=== PATIENT | male | born 1995 | race African-American/Black ===

== ENCOUNTER 2019-01-12 01:26 | Observation (INO) | payer OTHER ==
--- NOTE | 2019-01-12 01:34 | ED ---
General Adult HPI - General Chief complaint: Overdose Stated complaint: Neuro Time Seen by Provider: 01/12/19 01:34 Source: EMS Mode of arrival: EMS - History of Present Illness Initial comments: Patient is a 23yo male who answered to our emergency Department from [facility] for evaluation of altered mental status after an apparent drug intoxication. Upon arrival patient is sedated and provides minimal history. Per report that prior emergency department, the patient had encountered law enforcement earlier in the day, at that time he is awake alert and oriented, he was not arrested. Later in the evening he was found apparently dancing wearing only a pair of shorts despite the 20 weather. Law enforcement was called, patient was noted to be erratic and agitated. EMS was contacted to bring the patient to hospital for medical evaluation. In route the patient became drowsy, he was noted to have shallow respirations and pinpoint pupils. Patient was treated with 3 mg of Narcan and his mental status and respiratory status improved. Upon arrival at the emergency department the patient was agitated and was treated with Ativan. He underwent lab and imaging studies including a head CT. Workup was essentially negative aside from drug screen which was positive for cocaine, amphetamines, methamphetamines. Drug screen was not positive for opiates however the patient had admitted to possible sentinel ingestion and patient had responded to Narcan earlier in the day. At the outside hospital patient was noted to have some twitching motions of his face and some tongue thrusting movements. Patient does have a history of psychiatric illness and has been on psychiatric medications in the past. There is concerned he may be having focal seizures versus tardive dyskinesia versus burxism due to amphetamine use. Decision was made to transport the patient to our department for admission and neurologic evaluation - Related Data Allergies Allergy/AdvReac Type Severity Reaction Status Date / Time cat dander Allergy Unknown Verified 01/12/19 03:20 Review of Systems ROS Statement: Those systems with pertinent positive or pertinent negative responses have been documented in the HPI. ROS Other: All systems not noted in ROS Statement are negative. Past Medical History Past Medical History: Unable to Obtain History of Any Multi-Drug Resistant Organisms: Unobtainable Past Surgical History: Unable to Obtain Past Psychological History: Unable to Obtain Smoking Status: Unknown if ever smoked Past Alcohol Use History: Unable to Obtain Past Drug Use History: Unable to Obtain General Exam - General Exam Comments Initial Comments: Physical Exam GENERAL: Patient is sleeping but wakes to loud voice or touch, upon waking the patient has slurred speech, is uncertain of events earlier in the day HENT: Normocephalic, Atraumatic. EYES: PERRL, EOMI He was 3 mm and reactive PULMONARY: Unlabored respirations. No audible rales rhonchi or wheezing was noted. CARDIOVASCULAR: There is a regular rate and rhythm without any murmurs gallops or rubs. ABDOMEN: Soft and nontender with normal bowel sounds. SKIN: Skin is clear with no lesions or rashes and otherwise unremarkable. : Deferred NEUROLOGIC: The patient is oriented to self, uncertain of the location or events of the day Is able to provide distant history including medications, ALLERGIES MUSCULOSKELETAL: Normal extremities with adequate strength and full range of motion. No lower extremity swelling or edema. No calf tenderness. PSYCHIATRIC: Erratic Course Vital Signs 01/12/19 01/12/19 01:28 03:20 Temperature 98.1 F Pulse Rate 83 80 Respiratory 16 14 Rate Blood Pressure 125/82 114/85 O2 Sat by Pulse 98 97 Oximetry Medical Decision Making - Medical Decision Making Pt was seen and evaluated history was obtained from medical record, patient is somnolent but arousable. She has polysubstance ingestion. There is concern he had facial twitching or tardive dyskinesia. I don't witness any of this however we will plan to place the patient in observation until his mental status improves and he can be evaluated by medicine and possibly neurology or psychology. Disposition Clinical Impression: Intoxication, Encephalopathy acute Disposition: ADMITTED IP TO THIS HOSP Condition: Stable Is patient prescribed a controlled substance at d/c from ED?: No
[2019-01-12] MEDS ORDERED: NALOXONE 0.4 MG/ML 1 ML VIAL IV PRN (04:12)
[2019-01-12 06:55] LABS: Anisocytosis Slight; Basophils % (A) 0 %; Eosinophils # (A) 0.1 k/uL (0-0.7); Eosinophils % (A) 2 %; HCT 38.8 % (39.0-53.0); HGB 12.2 gm/dL (13.0-17.5); Lymphocytes # (A) 1.8 k/uL (1.0-4.8); Lymphocytes % (A) 28 %; MCHC 31.4 g/dL (31.0-37.0); MCV 82.9 fL (80.0-100.0); Mean Platelet Volume 7.3; Monocytes # (A) 0.4 k/uL (0-1.0); Monocytes % (A) 6 %; Neutrophils # (A) 3.9 k/uL (1.3-7.7); Neutrophils % (A) 62 %; Platelet Count 237 k/uL (150-450); RBC 4.68 m/uL (4.30-5.90); RDW 17.4 % (11.5-15.5); WBC 6.4 k/uL (3.8-10.6)
--- NOTE | 2019-01-12 07:01 | P.HPIM ---
History of Present Illness H&P Date: 01/12/19 Chief Complaint: Altered mental status 23-year-old male no significant past medical history Patient still seemed to be intoxicated unable to provide any meaningful history he mentioned that he is homeless and that he is very hungry. He has no recollection of what happened or why he is in the hospital. Patient is unreliable historian I performed chart review of ER records and discussed the case with ER physician Patient was transferred from [facility] due to altered mental status for urologic evaluation. Per report patient had an encounter with law enforcement however he was alert and awake and was not arrested initially but then later during the day he had another encounter where he was found dancing wearing only a short in the cold weather so long for spent was notified again due to the cirrhotic behavior he was found at that time to be agitated EMS notified and was taken to the hospital. In route it seems like patient became more drowsy, noted to have pinpoint pupils and shallow respiration he was given Narcan and had slight improvement in his mental status. By the time he made it to the ER at [facility] he was very agitated was given some Ativan. Blood work was negative except for positive urine drug screen for cocaine, amphetamine, methamphetamine. Computed tomography scan of the head was negative for any acute process for pathology. It is reported that patient admitted to some fentanyl ingestion however his urine drug screen was negative for opiates. During his stay at [facility] in the ER he was found to have some twitching motion of the face and some tongue protrusion motion. It is noted that patient has some mental health history and has been on antipsychotics in the past so there was some concerns for tardive dyskinesia or focal seizure. [facility] did not have neurology service available so patient was transferred to our facility Review of Systems ROS unobtainable: due to mental status Past Medical History Past Medical History: Unable to Obtain History of Any Multi-Drug Resistant Organisms: Unobtainable Past Surgical History: Unable to Obtain Past Psychological History: Unable to Obtain Smoking Status: Unknown if ever smoked Past Alcohol Use History: Unable to Obtain Past Drug Use History: Unable to Obtain - Past Family History Family Family Medical History: Unable to Obtain Medications and Allergies Allergies Allergy/AdvReac Type Severity Reaction Status Date / Time cat dander Allergy Unknown Verified 01/12/19 03:20 Physical Exam Vitals: Vital Signs Temp Pulse Pulse Resp BP BP Pulse Ox 01/12/19 05:29 97.8 F 84 13 90/62 100 01/12/19 03:20 80 14 114/85 97 01/12/19 01:28 98.1 F 83 16 125/82 98 Intake and Output 01/11/19 01/11/19 01/12/19 14:59 22:59 06:59 Other: Weight 65.771 kg Constitutional: No acute distress, Patient's still intoxicated with erratic behavior unable to cooperate properly with exam or interview Eyes: Anicteric sclerae, moist conjunctiva, Pupils equal round reactive to light ENMT: NC/AT Oropharynx clear, no erythema, or exudates Neck: Supple, FROM, no masses, or JVD No carotid bruits No thyromegaly Lungs: Clear to auscultation Clear to percussion Normal respiratory effort, no accessory muscle use Cardiovascular: Heart regular in rate and rhythm, No murmurs, gallops, or rubs No peripheral edema Abdominal: Soft Nontender, no guarding, rebound or rigidity Abdomen moving with respiration Normoactive bowel sounds No hepatomegaly, No splenomegaly No palpable mass No abdominal wall hernia noted Skin: Multiple skin lesions on the face small superficial less than 1 cm each multiple on bilateral cheeks, without any discharge erythema or induration Normal temperature, tone, texture, turgor No induration No subcutaneous nodules No rash, lesions No ulcers Extremities: No digital cyanosis No clubbing Pedal pulses intact and symmetrical Radial pulses intact and symmetrical No calf tenderness Psychiatric: Alert but confused Inappropriate behavior patient continues to be intoxicated Poor judgment Neuro patient didn't really cooperate with neuro exam , he is moving all 4 extremities Lymphatics: no palpable cervical or supraclavicular , or inguinal lymph nodes Assessment and Plan Assessment: 23-year-old male with history of unknown mental health problems patient possibly homeless Was transferred from [facility] for neurologic evaluation due to possible twitching on the face and tongue protrusion concerning for seizure versus tardive dyskinesis Patient was found with erratic behavior in the cold weather today with possible drug intoxication Admitted under observation with anticipated length of stay less than two midnight Plan: Drug intoxication Polysubstance abuse Erratic behavior Facial twitching Close monitoring of vital signs Fall precautions IV fluid hydration Neurologic evaluation Neurochecks Follow-up labs DVT prophylaxis heparin subcu 3 times a day Patient was unable to provide any meaningful history at this time continues to be intoxicated with erratic behavior Full code by default Discussed with: Patient, ER, RN Anticipated length of stay < than [address]: Pending clinical course A total of 60 minutes was spent on the care of this complex patient more than 50% of the time was spent in counseling and care coordination.
[2019-01-12 07:04] LABS: ALT 65 U/L (21-72); AST 33 U/L (17-59); African American GFR (CKD) >90 (>60 ml/min/1.73 sqM); Albumin 3.9 g/dL (3.5-5.0); Alkaline Phosphatase 62 U/L (38-126); Anion Gap 6 mmol/L; Blood Urea Nitrogen 20 mg/dL (9-20); Calcium 9.1 mg/dL (8.4-10.2); Carbon Dioxide 25 mmol/L (22-30); Chloride 109 mmol/L (98-107); Glucose 104 mg/dL (74-99); Non-African American GFR(CKD) >90 (>60 ml/min/1.73 sqM); Potassium 3.9 mmol/L (3.5-5.1); Sodium 140 mmol/L (137-145)
[2019-01-12] MEDS: SODIUM CHLORIDE 0.9% 1,000 ML IV SCH ×2 (09:13→18:18)
--- NOTE | 2019-01-12 14:35 | P.PN ---
Progress Note - Text Progress Note Date: 01/12/19 23-year-old male with psychiatric history is brought to the ED for erratic behavior and agitation. UDS was positive for cocaine, amphetamine and methamphetamine. CT of the head was negative for acute process. Patient admitted to fentanyl ingestion though UDS was negative for opiates. He was noted to have twitching motion of his face and trunk protrusion, transferred to [facility] for neurology evaluation. Patient was seen around 2:30 PM. Patient is disinterested in answering questions. Patient is giving one-word answers followed by going back to sleep. He is on psychiatric medication, unsure if patient has been compliant. We consulted psychiatry but he refused to see the doctor. Psych will attempt to see the patient again tomorrow. Patient will be cleared for discharge after psychiatry assessment and medication reconciliation.
--- NOTE | 2019-01-12 14:43 | P.CN ---
Psychiatric Consult - . Consult date: 01/12/19 Consult:: IDENTIFYING DATA: The patient is a 23-year-old -[place] male transferred from [facility] with altered mental status. HISTORY OF PRESENT ILLNESS: He was not cooperate with the interview. According to the record he presented to the ER at [facility] acutely agitated His urine drug screen was positive for cocaine, amphetamine and methamphetamine. In the emergency room at [facility] he "admitted to some fentanyl ingestion" After I introduced myself he stated that he will not talk to a psychiatrist. He made a comment to the effect that "you're going to keep me here." PAST PSYCHIATRIC HISTORY: He would not provide information about his past psychiatric history. According to record he has a history of a mental illness and treatment with antipsychotic medications. His outpatient medications are listed as Suboxone 8/2 mg, BuSpar, Wellbutrin XL, Restoril, Seroquel and Celexa. PAST MEDICAL HISTORY: He would not answer questions about his past medical history. ALLERGIES: NO KNOWN DRUG ALLERGIES. SUBSTANCE USE HISTORY: He would not answer questions about his substance use history but he is prescribed Suboxone by a community provider apparently for the treatment of chronic opiate use disorder. FAMILY PSYCHIATRIC/SUBSTANCE USE HISTORY: He would not answer questions about his family psychiatric and/or substance use history.. SOCIAL HISTORY: He would not answer questions about his social history. MENTAL STATUS EXAM: He presented as a thin -[place] male who made poor eye contact. He appeared to attend to the interview but would not cooperate. He hadn't facial acne but no prominent physical abnormalities. He had angry facial expression. He showed psychomotor retardation but no abnormal movements. His speech was not spontaneous. His affect was irritable. He would not answer questions about suicidal ideation or wishes. He did not express ideas reference or paranoid ideation during this brief encounter. His thinking appeared abstract. He does not appear to be responding to internal stimuli.. IMPRESSIONS: He is a young -[place] male transferred to our Medical Center from a [facility] ER for altered mental status most likely secondary to multiple drug ingestion. His UDS was positive for cocaine, amphetamine and methamphetamine and reported recent use of fentanyl. He has a reported history of a psychiatric illness and is prescribed several psychotropic medications. He would not cooperate with a psychiatric interview PLAN: I will attempt to interview him again to determine risk of her need for transfer to the psychiatric unit thank you for this consult. 01/12/19 14:35
[2019-01-12] MEDS ORDERED: LORazepam 2 MG/ML INJ IV PRN (18:29)
[2019-01-12 22:10] VITALS: RESP 16
[2019-01-13] MEDS: SODIUM CHLORIDE 0.9% 1,000 ML IV SCH ×2 (06:25→11:19)
[2019-01-13 08:09] VITALS: BP 113/72; PULSE 71; TEMP 97.9
--- NOTE | 2019-01-13 09:57 | P.DS ---
Providers Date of admission: 01/12/19 04:13 Expected date of discharge: 01/13/19 Attending physician: Chela Rothman MD Consults: 01/12/19 11:51 Consult Physician Stat Consulting Provider: Jacky Dsouza Reason/Comments: drug intoxication Do you want consulting provider notified?: Yes Primary care physician: Stated None Hospital Course: 23-year-old male with psychiatric history is brought to the ED for erratic behavior and agitation. UDS was positive for cocaine, amphetamine and methamphetamine. CT of the head was negative for acute process. Patient admitted to fentanyl ingestion though UDS was negative for opiates. He was noted to have twitching motion of his face and tongue protrusion, transferred to [facility] for neurology evaluation. In the ED, vital signs are stable. CBC showed hemoglobin 12.2. CMP showed chloride 109, glucose 104. UDS from previous hospital was positive for methamphetamine and amphetamines. Patient was evaluated by psychiatry yesterday but refused to speak with them. Per RN, patient was reevaluated today and cleared for discharge from a psychiatric standpoint. Patient did not show any facial twitches or tongue protrusion during this admission. There was no seizure activity during his hospitalization. General: [non toxic], [no distress], [appears at stated age] Derm: [warm], [dry] Head: [atraumatic], [normocephalic], [symmetric] Eyes: [EOMI], [no lid lag], [anicteric sclera] Cardiovascular: [S1S2 reg], [no murmur], [positive DP pulse bilateral], Lungs: [CTA bilateral], [no rhonchi, no rales] , [no accessory muscle use] Abdominal: [soft], [ nontender to palpation], [no guarding], [no appreciable organomegaly] Ext: [no gross muscle atrophy], [no edema], [no contractures] Psych: [Alert], [oriented], [appropriate affect] Assessment and plan Acute drug intoxication with history of polysubstance abuse Erratic behavior with psychiatric history UDS positive for methamphetamine and amphetamines. He was given Ativan as needed for agitation overnight. Plans: Discussed rehab options including [place]. Plans: Patient has been cleared by psychiatry. Patient is out of medications. We will refill his medications for the next week. Advised to follow-up with psychiatry within 3-4 days of discharge. Patient advised drug cessation. He verbalizes understanding of the plan. Patient Condition at Discharge: Stable Plan - Discharge Summary Discharge Rx Participant: No New Discharge Prescriptions: Continue Buprenorphine HCl/Naloxone HCl [Suboxone 8 mg-2 mg Sl Film] 1 film SL DAILY busPIRone HCl [Buspar] 10 mg PO TID #21 tab Citalopram Hydrobromide [CeleXA] 40 mg PO DAILY #7 tab QUEtiapine FUMARATE [SEROquel] 200 mg PO HS #7 tab buPROPion XL [Wellbutrin XL] 150 mg PO DAILY #7 tab Discontinued Temazepam [Restoril] 15 mg PO HS Discharge Medication List Buprenorphine HCl/Naloxone HCl [Suboxone 8 mg-2 mg Sl Film] 1 film SL DAILY 01/12/19 [History] Citalopram Hydrobromide [CeleXA] 40 mg PO DAILY #7 tab 01/13/19 [Rx] QUEtiapine FUMARATE [SEROquel] 200 mg PO HS #7 tab 01/13/19 [Rx] buPROPion XL [Wellbutrin XL] 150 mg PO DAILY #7 tab 01/13/19 [Rx] busPIRone HCl [Buspar] 10 mg PO TID #21 tab 01/13/19 [Rx] Follow up Appointment(s)/Referral(s): None,Stated [Primary Care Provider] - 1-2 days Ayaan Kelley DO [Medical Doctor] - 1 Week Activity/Diet/Wound Care/Special Instructions: Diet: Regular Follow-up PCP within 3 days of discharge. Follow-up psychiatry within 1 week of discharge. Take all medications as advised. Please refrain from doing illicit drugs. Come back to the ED or call 911 for suicidal ideation, homicidal ideation, visual or auditory hallucinations. Discharge Disposition: HOME SELF-CARE
--- NOTE | 2019-01-13 16:32 | P.CON ---
Consult Note - . Consult date: 01/13/19 Assessment/Plan:: Clinical Problems: Unintentional overdose of heroin, opiate use disorder severe, cocaine use disorder moderate, methamphetamine use disorder, cannabis use disorder Interim history: I reviewed the medical record and interviewed the patient. He was minimally cooperative with the interview. He alleged that he unintentionally overdosed on heroin prior to admission. He denied that the overdose was related to feelings of depression or suicidal thoughts or wishes. He is not a resident of [facility] or [place]. He was referred to [facility] for residential substance abuse treatment. I had difficulty understanding his explanation but he appears to have left [facility]. He talked about "meeting a woman" and then using heroin resulting in the overdose. He has a history of heroin use. He admitted to injecting, smoking and insufflating to heroin. He has been in several substance abuse treatment programs. The only program that he would name was [place]. He is not been in a methadone treatment program. He alleged that "a physician" had prescribed him Suboxone for the treatment of his opiate dependence. His longest period of abstinence over the last 4 years was "a couple weeks". He admitted to 2 psychiatric admissions; at [facility] and had "[place]" ([facility]). He would not explain or discuss the reason for these hospitalizations. During this interview she denied feeling depressed or having thoughts of or suicide. He denied feeling persistently anxious. In response to questions about psychotic experiences he alleged that he "always hears voices". He would not answer questions that would allow me to better understand this experience and determine whether represented a true auditory hallucinations. He is single and has no children. 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 Mental status exam: He presented as a thin uncooperative aftercare can male who is laying In bed. He did not make eye contact. There are no distinguishing features or prominent physical abnormalities. He had a flat facial expression. He was alert and oriented to person place and time. He showed psychomotor retardation but no abnormal motor and speech. I did not evaluate his gait. His speech was not spontaneous. He spoke so softly that he was barely audible. His affect was flat but appropriate. He denied suicidal ideation or wishes. He denied homicidal ideation. He denied feeling hopeless, helpless or worthless. He did not express ideas reference, paranoid ideation, magical ideation or delusional thoughts. His thinking was concrete but his associations appeared coherent, logical and goal directed. He did not appear to be responding to internal stimuli. Assessment: He is a 23-year-old single -[place] male who has a history of substance abuse disorders. He presented to the Medical Center following an unintentional overdose of heroin. Despite participation in multiple substance abuse treatment programs his longest period of abstinence has been weeks. He would benefit from continued substance abuse treatment. Considering the duration of his opiate use disorder and a failure of both outpatient and residential treatment, he'll be a candidate to refer for a methadone substance abuse treatment program. There is no indication for transfer to the psychiatric unit at this time. Plan: There is no indication for transfer to the psychiatric unit. Refer for substance abuse treatment. Thank you for this consult
== END 2019-01-13 11:55 | disposition home or self-care (01) ==
LOC: EC 01:26 → 4SSUR 04:13
PROVIDERS: ADMIT Internal Medicine; ATTEND Internal Medicine
DX: F19.129 Other psychoactive substance abuse with intoxication, unspecified (principal); G93.40 Encephalopathy, unspecified; J30.81 Allergic rhinitis due to animal (cat) (dog) hair and dander; R25.3 Fasciculation; R41.843 Psychomotor deficit; T40.1X1A Poisoning by heroin, accidental (unintentional), initial encounter; F11.20 Opioid dependence, uncomplicated; F12.10 Cannabis abuse, uncomplicated; F14.20 Cocaine dependence, uncomplicated; F15.10 Other stimulant abuse, uncomplicated
CPT/HCPCS: 96361 ×2; 96374; 99285; 80053; 85025; G0378 ×2; J2060

== ENCOUNTER 2019-01-18 03:30 | Inpatient (IN) | payer OTHER ==
[2019-01-18] MEDS ORDERED: SODIUM CHLORIDE 0.9% 1,000 ML IV STA (03:35)
[2019-01-18] MEDS ORDERED: LORazepam 2 MG/ML INJ IV STA (03:36)
--- NOTE | 2019-01-18 04:03 | ED ---
General Adult HPI - General Source: patient, police, EMS, RN notes reviewed, old records reviewed Mode of arrival: EMS Limitations: no limitations <Michele Tipton - Last Filed: 01/18/19 06:57> <Ruben Quintana - Last Filed: 01/18/19 09:14> - General Stated complaint: EPS,drug use Time Seen by Provider: 01/18/19 03:30 - History of Present Illness Initial comments: 23-year-old male presents with suspected drug overdose. Patient was found by police wandering the streets. He was noted to have erratic impulsive behavior. He was recently admitted to this institution with polysubstance overdose. He does admit to using methamphetamine. Patient's is agitated, he is able to answer simple questions. He admits to using drugs including methamphetamine. Full history is not possible secondary to patient's presentation. (Michele Khan) - Related Data Home Medications Medication Instructions Recorded Confirmed Buprenorphine HCl/Naloxone HCl 1 film SL DAILY 01/12/19 01/18/19 [Suboxone 8 mg-2 mg Sl Film] Previous Rx's Medication Instructions Recorded Citalopram Hydrobromide [CeleXA] 40 mg PO DAILY #7 tab 01/13/19 QUEtiapine FUMARATE [SEROquel] 200 mg PO HS #7 tab 01/13/19 buPROPion XL [Wellbutrin XL] 150 mg PO DAILY #7 tab 01/13/19 busPIRone HCl [Buspar] 10 mg PO TID #21 tab 01/13/19 Allergies Allergy/AdvReac Type Severity Reaction Status Date / Time cat dander Allergy Unknown Verified 01/12/19 10:04 Review of Systems ROS Other: All systems not noted in ROS Statement are negative. <Michele Tipton - Last Filed: 01/18/19 06:57> ROS Other: All systems not noted in ROS Statement are negative. <Ruben Quintana - Last Filed: 01/18/19 09:14> ROS Statement: Those systems with pertinent positive or pertinent negative responses have been documented in the HPI. Past Medical History Past Medical History: Unable to Obtain History of Any Multi-Drug Resistant Organisms: Unobtainable Past Surgical History: Unable to Obtain Past Psychological History: Unable to Obtain Smoking Status: Unknown if ever smoked Past Alcohol Use History: Unable to Obtain Past Drug Use History: Unable to Obtain - Past Family History Family Family Medical History: Unable to Obtain <Michele Tipton - Last Filed: 01/18/19 06:57> General Exam Limitations: no limitations General appearance: appears intoxicated, anxious Head exam: Present: atraumatic, normocephalic Eye exam: Present: other (Pupils are reactive, dilated) ENT exam: Present: mucous membranes dry Respiratory exam: Present: normal lung sounds bilaterally. Absent: respiratory distress, wheezes Cardiovascular Exam: Present: regular rate, normal rhythm GI/Abdominal exam: Present: soft. Absent: distended, tenderness, guarding Extremities exam: Present: other (Distal extremities are cool to the touch, p ulses are intact, no signs of frostbite) Neurological exam: Present: alert, other (Patient is moving all extremities symmetrically). Absent: motor sensory deficit Psychiatric exam: Present: agitated, anxious <Michele Tipton - Last Filed: 01/18/19 06:57> Course <Michele Tipton - Last Filed: 01/18/19 06:57> <Ruben Quintana - Last Filed: 01/18/19 09:14> Vital Signs 01/18/19 01/18/19 01/18/19 03:34 06:28 07:39 Temperature 98.6 F Pulse Rate 84 89 80 Respiratory 24 18 20 Rate Blood Pressure 151/100 103/59 O2 Sat by Pulse 95 98 95 Oximetry - Reevaluation(s) Reevaluation #1: 01/18/19 0700 Patient's care is signed out to Dr. Quintana at shift change awaiting sobriety and reevaluation. 01/18/19 06:57 (Michele Tipton) 01/18/19 08:40 Age and has been evaluated twice now. Patient still appears intoxicated. Patient is oriented. Patient is refusing IV placement and pulled out the IV lines. 01/18/19 09:12 Patient again reevaluated. Patient is alert and still remains intoxicated. Case was discussed in detail with Dr. Benavides, who will admit covering for hos pital call. He is aware that IV is not present. IV cannot be established at this time secondary to patient noncompliance and removing IV lines. Is not felt to be beneficial to place central line or IO line for risk of complications and potentially patient removing them again. Patient will need to be observed further prior to before discharge. (Ruben Quintana) Medical Decision Making - Lab Data Result diagrams: 01/18/19 03:59 01/18/19 03:59 <Michele Tipton - Last Filed: 01/18/19 06:57> - Lab Data Result diagrams: 01/18/19 03:59 01/18/19 03:59 <Ruben Quintana - Last Filed: 01/18/19 09:14> - Lab Data Lab Results 01/18/19 01/18/19 01/18/19 Range/Units 03:59 03:59 05:01 WBC 8.7 (3.8-10.6) k/uL RBC 5.34 (4.30-5.90) m/uL Hgb 13.8 (13.0-17.5) gm/dL Hct 43.6 (39.0-53.0) % MCV 81.6 (80.0-100.0) fL MCH 25.9 (25.0-35.0) pg MCHC 31.7 (31.0-37.0) g/dL RDW 16.9 H (11.5-15.5) % Plt Count 355 (150-450) k/uL Neutrophils % 62 % Lymphocytes % 27 % Monocytes % 6 % Eosinophils % 1 % Basophils % 1 % Neutrophils # 5.4 (1.3-7.7) k/uL Lymphocytes # 2.4 (1.0-4.8) k/uL Monocytes # 0.6 (0-1.0) k/uL Eosinophils # 0.1 (0-0.7) k/uL Basophils # 0.1 (0-0.2) k/uL Anisocytosis Slight Sodium 141 (137-145) mmol/L Potassium 4.6 (3.5-5.1) mmol/L Chloride 105 (98-107) mmol/L Carbon Dioxide 18 L (22-30) mmol/L Anion Gap 18 mmol/L BUN 32 H (9-20) mg/dL Creatinine 0.97 (0.66-1.25) mg/dL Est GFR (CKD-EPI)AfAm >90 (>60 ml/min/1.73 sqM) Est GFR (CKD-EPI)NonAf >90 (>60 ml/min/1.73 sqM) Glucose 71 L (74-99) mg/dL Calcium 10.4 H (8.4-10.2) mg/dL Total Bilirubin 0.7 (0.2-1.3) mg/dL AST 96 H (17-59) U/L ALT 88 H (21-72) U/L Alkaline Phosphatase 89 (38-126) U/L Total Protein 8.9 H (6.3-8.2) g/dL Albumin 5.1 H (3.5-5.0) g/dL Salicylates <1.0 mg/dL Urine Opiates Screen Not Detected (NotDetected) Ur Oxycodone Screen Not Detected (NotDetected) Urine Methadone Screen Not Detected (NotDetected) Ur Propoxyphene Screen Not Detected (NotDetected) Acetaminophen <10.0 ug/mL Ur Barbiturates Screen Not Detected (NotDetected) U Tricyclic Antidepress Not Detected (NotDetected) Ur Phencyclidine Scrn Not Detected (NotDetected) Ur Amphetamines Screen Detected H (NotDetected) U Methamphetamines Scrn Detected H (NotDetected) U Benzodiazepines Scrn Not Detected (NotDetected) Urine Cocaine Screen Detected H (NotDetected) U Marijuana (THC) Screen Detected H (NotDetected) Serum Alcohol <10 mg/dL Disposition <Michele Tipton - Last Filed: 01/18/19 06:57> Is patient prescribed a controlled substance at d/c from ED?: No <Ruben Quintana - Last Filed: 01/18/19 09:14> Clinical Impression: Intoxication, Encephalopathy acute, Substance abuse Disposition: ADMITTED IP TO THIS HOSP Referrals: None,Stated [Primary Care Provider] - 1-2 days
[2019-01-18 04:12] LABS: Anisocytosis Slight; Basophils # (A) 0.1 k/uL (0-0.2); Basophils % (A) 1 %; Eosinophils # (A) 0.1 k/uL (0-0.7); Eosinophils % (A) 1 %; HCT 43.6 % (39.0-53.0); HGB 13.8 gm/dL (13.0-17.5); Lymphocytes # (A) 2.4 k/uL (1.0-4.8); Lymphocytes % (A) 27 %; MCH 25.9 pg (25.0-35.0); MCHC 31.7 g/dL (31.0-37.0); MCV 81.6 fL (80.0-100.0); Mean Platelet Volume 7.2; Monocytes # (A) 0.6 k/uL (0-1.0); Monocytes % (A) 6 %; Neutrophils # (A) 5.4 k/uL (1.3-7.7); Neutrophils % (A) 62 %; Platelet Count 355 k/uL (150-450); RBC 5.34 m/uL (4.30-5.90); RDW 16.9 % (11.5-15.5); WBC 8.7 k/uL (3.8-10.6)
[2019-01-18 04:24] LABS: ALT 88 U/L (21-72); AST 96 U/L (17-59); Acetaminophen <10.0 ug/mL; African American GFR (CKD) >90 (>60 ml/min/1.73 sqM); Albumin 5.1 g/dL (3.5-5.0); Alcohol <10 mg/dL; Alkaline Phosphatase 89 U/L (38-126); Anion Gap 18 mmol/L; Blood Urea Nitrogen 32 mg/dL (9-20); Calcium 10.4 mg/dL (8.4-10.2); Carbon Dioxide 18 mmol/L (22-30); Chloride 105 mmol/L (98-107); Glucose 71 mg/dL (74-99); Non-African American GFR(CKD) >90 (>60 ml/min/1.73 sqM); Potassium 4.6 mmol/L (3.5-5.1); Salicylate <1.0 mg/dL; Sodium 141 mmol/L (137-145); Total Bilirubin 0.7 mg/dL (0.2-1.3); Total Protein 8.9 g/dL (6.3-8.2)
[2019-01-18] MEDS ORDERED: LORazepam 2 MG/ML INJ IM STA (04:47)
[2019-01-18 05:41] LABS: Amphetamine Screen,Urine Detected (NotDetected); Barbiturate Screen,Urine Not Detected (NotDetected); Benzodiazepines Screen,Urine Not Detected (NotDetected); Cocaine Screen,Urine Detected (NotDetected); Methadone Screen, Urine Not Detected (NotDetected); Opiate Screen,Urine Not Detected (NotDetected); Oxycodone Screen, Urine Not Detected (NotDetected); Phencyclidine Screen,Urine Not Detected (NotDetected); Tricyclic Antidepressant,Urine Not Detected (NotDetected); Urn Cannabinoid Scrn Detected (NotDetected)
[2019-01-18] MEDS ORDERED: NALOXONE 0.4 MG/ML 1 ML VIAL IV PRN (09:14)
--- NOTE | 2019-01-18 17:40 | P.HPIM ---
History of Present Illness H&P Date: 01/18/19 Chief Complaint: drug overdose Mr. Bjawa is a 22-year-old male with a past medical history of polysubstance abuse brought in by police as he was wandering in the streets. Patient was noticed to have a erratic impulsive behavior.patient has a previous admission last week for the same complaint. At the time of admission patient was very agitated and was unable to answer any questions. His urine drug screen was positive for amphetamines, cocaine and marijuana. patient has been admitted to the general medical floors. Currently the patient is waking up and states that he is hungry and wants something to eat. Patient is still delusional and he is trying to wean his friends. Patient is still confused. He knows that he is in the hospital but could not specify which one. He admits to having history of drug abuse but he said he was clean for a few weeks but later on got back to them because he was having issues with his girlfriend. Patient denies having any suicidal or homicidal ideation. He mentions about doing drugs to get himself high but not to hurt himself. patient has twitching motions of his face and trunk protrusion, this has been present even during the last admission. He complains of pain all over his body. Review of systems - could not be done as the patient is confused and delusional. Review of Systems could not be done due to patient's mentation issues Past Medical History Past Medical History: No Reported History, Unable to Obtain History of Any Multi-Drug Resistant Organisms: Unobtainable Past Surgical History: No Surgical Hx Reported Past Anesthesia/Blood Transfusion Reactions: Unable to Obtain Past Psychological History: Unable to Obtain Smoking Status: Current every day smoker Past Alcohol Use History: None Reported Past Drug Use History: Cocaine, Marijuana, Methamphetamine - Past Family History Family Family Medical History: Unable to Obtain Medications and Allergies Home Medications Medication Instructions Recorded Confirmed Type Buprenorphine HCl/Naloxone HCl 1 film SL DAILY 01/12/19 01/18/19 History [Suboxone 8 mg-2 mg Sl Film] Citalopram Hydrobromide [CeleXA] 40 mg PO DAILY #7 tab 01/13/19 01/18/19 Rx QUEtiapine FUMARATE [SEROquel] 200 mg PO HS #7 tab 01/13/19 01/18/19 Rx buPROPion XL [Wellbutrin XL] 150 mg PO DAILY #7 tab 01/13/19 01/18/19 Rx busPIRone HCl [Buspar] 10 mg PO TID #21 tab 01/13/19 01/18/19 Rx Allergies Allergy/AdvReac Type Severity Reaction Status Date / Time cat dander Allergy Unknown Verified 01/18/19 09:26 Physical Exam Vitals: Vital Signs Temp Pulse Pulse Resp BP BP Pulse Ox 01/18/19 13:26 97.9 F 76 14 110/66 100 01/18/19 12:05 97.4 F L 78 16 109/62 100 01/18/19 11:00 82 20 108/64 95 01/18/19 10:00 80 20 123/87 95 01/18/19 09:00 98 20 126/108 95 01/18/19 07:39 80 20 103/59 95 01/18/19 06:28 89 18 98 01/18/19 03:34 98.6 F 84 24 151/100 95 Intake and Output 01/18/19 01/18/19 01/18/19 06:59 14:59 22:59 Other: Weight 68.039 kg GEN. APPEARANCE: partially awake, in no apparent distress HEAD EXAM: multiple skin lesions on the face without any discharge or erythema EYE EXAM: pupils equal and reactive to light. ENT EXAM: mucous membrane is dry. RESPIRATORY EXAM: breath sounds positive. No wheeze or crackles. CARDIOVASCULAR EXAM: tachycardia GI/ABDOMINAL EXAM: soft, normal bowel sounds. no guarding or rigidity. EXTREMITIES EXAM: no peripheral edema. NEUROLOGICAL EXAM: alert, oriented X1-2 , focal deficits PSYCHIATRIC EXAM: confused and delusional SKIN EXAM: multiple IV track guerin over the upper extremities Results CBC & Chem 7: 01/18/19 03:59 01/18/19 03:59 Labs: Abnormal Lab Results - Last 24 Hours (Table) 01/18/19 01/18/19 01/18/19 Range/Units 03:59 03:59 05:01 RDW 16.9 H (11.5-15.5) % Carbon Dioxide 18 L (22-30) mmol/L BUN 32 H (9-20) mg/dL Glucose 71 L (74-99) mg/dL Calcium 10.4 H (8.4-10.2) mg/dL AST 96 H (17-59) U/L ALT 88 H (21-72) U/L Total Protein 8.9 H (6.3-8.2) g/dL Albumin 5.1 H (3.5-5.0) g/dL Ur Amphetamines Screen Detected H (NotDetected) U Methamphetamines Scrn Detected H (NotDetected) Urine Cocaine Screen Detected H (NotDetected) U Marijuana (THC) Screen Detected H (NotDetected) Thrombosis Risk Factor Assmnt - Choose All That Apply Any of the Below Risk Factors Present?: No Other Risk Factors: No Thrombosis Risk Factor Assessment Level: Very Low Risk Assessment and Plan Assessment: ASSESSMENT Encephalopathy due to Drug overdose Polysubstance abuse Facial twitching PLAN: continue the patient on IV fluids. As the patient is still delusional and confused, will need one-on-one sitter. Psychiatric services have been co nsulted - will evaluate once medically cleared. Patient has been petitioned. We will monitor the patient closely.further recommendations to follow depending on the progress of the patient.
[2019-01-18] MEDS ORDERED: ACETAMINOPHEN TAB 325 MG TAB PO PRN (17:48)
[2019-01-18] MEDS: ALPRAZolam 0.5 MG TAB PO PRN (18:55)
[2019-01-18] MEDS ORDERED: LORazepam 2 MG/ML INJ IV PRN (21:54)
[2019-01-18] MEDS: LORazepam 2 MG/ML INJ IV PRN (22:56)
[2019-01-19 06:32] LABS: Anisocytosis Slight; Basophils # (A) 0.1 k/uL (0-0.2); Basophils % (A) 2 %; Eosinophils # (A) 0.1 k/uL (0-0.7); Eosinophils % (A) 2 %; HCT 43.8 % (39.0-53.0); Lymphocytes # (A) 1.6 k/uL (1.0-4.8); Lymphocytes % (A) 38 %; MCH 26.4 pg (25.0-35.0); MCHC 31.9 g/dL (31.0-37.0); MCV 82.5 fL (80.0-100.0); Mean Platelet Volume 6.6; Monocytes # (A) 0.3 k/uL (0-1.0); Monocytes % (A) 7 %; Neutrophils % (A) 48 %; Platelet Count 316 k/uL (150-450); RDW 16.3 % (11.5-15.5); WBC 4.2 k/uL (3.8-10.6)
[2019-01-19 06:46] LABS: ALT 80 U/L (21-72); AST 67 U/L (17-59); African American GFR (CKD) >90 (>60 ml/min/1.73 sqM); Albumin 4.3 g/dL (3.5-5.0); Alkaline Phosphatase 65 U/L (38-126); Anion Gap 8 mmol/L; Blood Urea Nitrogen 17 mg/dL (9-20); Calcium 9.4 mg/dL (8.4-10.2); Carbon Dioxide 25 mmol/L (22-30); Chloride 107 mmol/L (98-107); Glucose 102 mg/dL (74-99); Non-African American GFR(CKD) >90 (>60 ml/min/1.73 sqM); Potassium 4.1 mmol/L (3.5-5.1); Sodium 140 mmol/L (137-145); Total Bilirubin 0.6 mg/dL (0.2-1.3); Total Protein 7.8 g/dL (6.3-8.2)
[2019-01-19] MEDS: LORazepam 2 MG/ML INJ IV PRN ×3 (11:08→14:43)
[2019-01-19] MEDS: ALPRAZolam 0.5 MG TAB PO PRN (14:43)
--- NOTE | 2019-01-19 14:52 | P.PN ---
Subjective Progress Note Date: 01/19/19 Principal diagnosis: Encephalopathy due to drug overdose Mr. Bajwa is a 22-year-old male with a past medical history of polysubstance abuse brought in by police as he was wandering in the streets. Patient was noticed to have a erratic impulsive behavior.patient has a previous admission last week for the same complaint. At the time of admission patient was very agitated and was unable to answer any questions. His urine drug screen was positive for amphetamines, cocaine and marijuana. patient has been admitted to the general medical floors. Currently the patient is waking up and states that he is hungry and wants something to eat. Patient is still delusional and he is trying to wean his friends. Patient is still confused. He knows that he is in the hospital but could not specify which one. He admits to having history of drug abuse but he said he was clean for a few weeks but later on got back to them because he was having issues with his girlfriend. Patient denies having any suicidal or homicidal ideation. He mentions about doing drugs to get himself high but not to hurt himself. On 01/19/2019 - patient is comfortably lying in bed. He has a sitter at the bedside. Patient is much more alert and oriented than yesterday. He states that he took the drugs to get himself high. He mentions that he is homeless and that his mother does not care for him. He was sober for a few weeks but due to an argument with his girlfriend he went back to drugs. Patient's vitals have been stable this morning. His labs from this morning are within normal limits. He complains of having pain all over his body. Patient does not have the twitching movements any more. Patient denies having any chest pain or difficulty in breathing. No abdominal pain nausea vomiting or diarrhea. No dysuria or hematuria. Active Medications Generic Name Dose Route Start Last Admin Trade Name Freq PRN Reason Stop Dose Admin Acetaminophen 650 mg 01/18/19 17:48 01/18/19 18:55 Tylenol Tab PO 650 mg Q6HR PRN Administration Fever and/ or Pain Alprazolam 0.5 mg 01/18/19 17:49 01/19/19 14:43 Xanax PO 0.5 mg Q6HR PRN Administration Anxiety Lorazepam 1 mg 01/18/19 21:54 01/19/19 14:43 Ativan IV 1 mg Q2HR PRN Administration CIWA 8 or 9 Lorazepam 1 mg 01/18/19 21:54 01/19/19 12:31 Ativan IV 1 mg Q1HR PRN Administration CIWA 10 to 15 Lorazepam 2 mg 01/18/19 21:54 Ativan IV 01/20/19 21:55 Q10M PRN CIWA 16 or higher Naloxone HCl 0.2 mg 01/18/19 09:14 Narcan IV Q2M PRN Opioid Reversal Objective - Vital Signs Vital signs: Vital Signs Temp 97.6 F 01/19/19 07:00 Pulse 70 01/19/19 08:20 Resp 15 01/19/19 08:20 BP 96/62 01/19/19 07:00 Pulse Ox 95 01/19/19 07:00 Intake & Output 01/18/19 01/19/19 01/19/19 18:59 06:59 18:59 Intake Total 500 400 546 Balance 500 400 546 Intake: Oral 500 400 546 Other: Voiding Method Toilet Toilet # Voids 0 0 # Bowel Movements 0 0 - Exam GEN. APPEARANCE: in no apparent distress HEAD EXAM: multiple skin lesions on the face without any discharge or erythema EYE EXAM: pupils equal and reactive to light. ENT EXAM: mucous membrane is dry. RESPIRATORY EXAM: breath sounds positive. No wheeze or crackles. CARDIOVASCULAR EXAM: tachycardia GI/ABDOMINAL EXAM: soft, normal bowel sounds. no guarding or rigidity. EXTREMITIES EXAM: no peripheral edema. NEUROLOGICAL EXAM: alert, oriented X 3 , no focal deficits PSYCHIATRIC EXAM: No suicidal or homicidal ideation SKIN EXAM: multiple IV track guerin over the upper extremities - Labs CBC & Chem 7: 01/19/19 06:03 01/19/19 06:03 Labs: Abnormal Lab Results - Last 24 Hours (Table) 01/19/19 01/19/19 Range/Units 06:03 06:03 RDW 16.3 H (11.5-15.5) % Glucose 102 H (74-99) mg/dL AST 67 H (17-59) U/L ALT 80 H (21-72) U/L Assessment and Plan Assessment: ASSESSMENT Encephalopathy due to Drug overdose Polysubstance abuse PLAN: Patient is oriented and back to his baseline today. He does not have any suicidal or homicidal ideation. Patient's vitals and labs within normal limits from this morning. Patient is medically cleared for psychiatric evaluation. The marriage and family social worker provided to him with the resources for rehabilitation. Further recommendations to follow depending on the progress of the patient.
[2019-01-19] MEDS: busPIRone HCl 10 MG TAB PO SCH ×3 (19:13→20:56)
[2019-01-19] MEDS: QUEtiapine 200 MG TAB PO SCH (20:52)
[2019-01-19] MEDS: NON FORMULARY DRUG (Buprenorphine Hcl/Naloxone Hcl [Suboxone 8 Mg-2 Mg Sl Film] 1 FILM) SUBLINGUAL SCH (21:02)
[2019-01-20] MEDS: LORazepam 2 MG/ML INJ IV PRN ×3 (00:29→15:04)
[2019-01-20] MEDS: buPROPion XL 150 MG TAB.ER.24H PO SCH (08:42)
[2019-01-20] MEDS: busPIRone HCl 10 MG TAB PO SCH ×3 (08:42→20:09)
[2019-01-20] MEDS: CITALOPRAM HYDROBROMIDE 20 MG TAB PO SCH (08:42)
[2019-01-20] MEDS: NON FORMULARY DRUG (Buprenorphine Hcl/Naloxone Hcl [Suboxone 8 Mg-2 Mg Sl Film] 1 FILM) SUBLINGUAL SCH (12:11)
--- NOTE | 2019-01-20 15:10 | P.PN ---
Subjective 22-year-old male with a past medical history of polysubstance abuse brought in by police as he was wandering in the streets. Patient was noticed to have a erratic impulsive behavior.patient has a previous admission last week for the same complaint. At the time of admission patient was very agitated and was unable to answer any questions. His urine drug screen was positive for amphetamines, cocaine and marijuana. patient has been admitted to the general medical floors. Currently the patient is waking up and states that he is hungry and wants something to eat. Patient is still delusional and he is trying to wean his friends. Patient is still confused. He knows that he is in the hospital but could not specify which one. He admits to having history of drug abuse but he said he was clean for a few weeks but later on got back to them because he was having issues with his girlfriend. Patient denies having any suicidal or homicidal ideation. He mentions about doing drugs to get himself high but not to hurt himself. On 01/19/2019 - patient is comfortably lying in bed. He has a sitter at the bedside. Patient is much more alert and oriented than yesterday. He states that he took the drugs to get himself high. He mentions that he is homeless and that his mother does not care for him. He was sober for a few weeks but due to an argument with his girlfriend he went back to drugs. Patient's vitals have been stable this morning. His labs from this morning are within normal limits. He complains of having pain all over his body. Patient does not have the twitching movements any more. Patient denies having any chest pain or difficulty in breathing. No abdominal pain nausea vomiting or diarrhea. No dysuria or hematuria. 01/20/2019 Patient is awake enough, unsure whether patient will actually required consultation from a psychiatric as patient denied any sleep or lie ideation patient is an not significantly depressed, patient at this point of time is willing to quit any drugs:. Although it is not easy to assess him as patient is not truthful with a lot of things. Social work will talk to the mother and will assess for the appropriate disposition patient was given information regarding the shelters. Patient probably can be discharged from medical perspective. Constitutional: Denied any fatigue denied any fever. Cardio vascular: denied any chest pain, palpitations Gastrointestinal denied any nausea vomiting Pulmonary: Denied any shortness of breath cough Neurologic denied any new focal deficits All inpatient medications were reviewed and appropriate changes in these medications as dictated in the interval history and assessment and plan. Objective - Vital Signs Vital signs: Vital Signs Temp 98.1 F 01/20/19 14:21 Pulse 77 01/20/19 14:21 Resp 16 01/20/19 14:21 BP 108/66 01/20/19 14:21 Pulse Ox 99 01/20/19 14:21 Intake & Output 01/19/19 01/20/19 01/20/19 18:59 06:59 18:59 Intake Total 1092 1210 Balance 1092 1210 Intake: Oral 1092 1210 Other: Voiding Method Toilet Toilet Toilet # Voids 3 2 # Bowel Movements 0 0 - Exam PHYSICAL EXAMINATION: GENERAL: The patient is alert and oriented x3, not in any acute distress. Well developed, well nourished. HEENT: Pupils are round and equally reacting to light. EOMI. No scleral icterus. No conjunctival pallor. Normocephalic, atraumatic. No pharyngeal erythema. No thyromegaly. CARDIOVASCULAR: S1 and S2 present. No murmurs, rubs, or gallops. PULMONARY: Chest is clear to auscultation, no wheezing or crackles. ABDOMEN: Soft, nontender, nondistended, normoactive bowel sounds. No palpable organomegaly. MUSCULOSKELETAL: No joint swelling or deformity. EXTREMITIES: No cyanosis, clubbing, or pedal edema. NEUROLOGICAL: Gross neurological examination did not reveal any focal deficits. SKIN:non specific lesions on face. - Labs CBC & Chem 7: 01/19/19 06:03 01/19/19 06:03 Assessment and Plan Plan: Possible substance abuse: Patient is awake enough to be discharged with the social work is working on his disposition at this time. -Encephalopathy secondary to drug overdose which improved -We will rule out hepatitis C
--- NOTE | 2019-01-20 15:11 | P.DS ---
Providers Date of admission: 01/20/19 08:47 Attending physician: Patrice Benavides Consults: 01/18/19 09:16 Consult Physician Urgent Consulting Provider: Manueltio Gonzalez Consult Reason/Comments: polysubstance abuse/intoxication Do you want consulting provider notified?: Yes Primary care physician: Stated None Hospital Course: Please refer to my progress note from today Plan - Discharge Summary Discharge Rx Participant: Yes New Discharge Prescriptions: Continue Buprenorphine HCl/Naloxone HCl [Suboxone 8 mg-2 mg Sl Film] 1 film SL DAILY busPIRone HCl [Buspar] 10 mg PO TID #21 tab Citalopram Hydrobromide [CeleXA] 40 mg PO DAILY #7 tab QUEtiapine FUMARATE [SEROquel] 200 mg PO HS #7 tab buPROPion XL [Wellbutrin XL] 150 mg PO DAILY #7 tab Discharge Medication List Buprenorphine HCl/Naloxone HCl [Suboxone 8 mg-2 mg Sl Film] 1 film SL DAILY 01/12/19 [History] Citalopram Hydrobromide [CeleXA] 40 mg PO DAILY #7 tab 01/13/19 [Rx] QUEtiapine FUMARATE [SEROquel] 200 mg PO HS #7 tab 01/13/19 [Rx] buPROPion XL [Wellbutrin XL] 150 mg PO DAILY #7 tab 01/13/19 [Rx] busPIRone HCl [Buspar] 10 mg PO TID #21 tab 01/13/19 [Rx] Follow up Appointment(s)/Referral(s): Rukhsana Godoy MD [STAFF PHYSICIAN] - 1 Week
[2019-01-20 19:23] LABS: Hepatitis A Antibody IgM Non-Reactive (Non-Reactive); Hepatitis B Core IgM Non-Reactive (Non-Reactive); Hepatitis B Surface Antigen Non-Reactive (Non-Reactive); Hepatitis C IgG Antibody Reactive (Non-Reactive)
[2019-01-20] MEDS: QUEtiapine 200 MG TAB PO SCH (20:10)
[2019-01-21] MEDS: busPIRone HCl 10 MG TAB PO SCH (07:45)
[2019-01-21] MEDS: CITALOPRAM HYDROBROMIDE 20 MG TAB PO SCH (07:46)
[2019-01-21] MEDS: buPROPion XL 150 MG TAB.ER.24H PO SCH (07:46)
[2019-01-21 08:26] VITALS: BP 98/59; PULSE 69; RESP 15; TEMP 98.4
[2019-01-21] MEDS: NON FORMULARY DRUG (Buprenorphine Hcl/Naloxone Hcl [Suboxone 8 Mg-2 Mg Sl Film] 1 FILM) SUBLINGUAL SCH (10:19)
[2019-01-21] MEDS ORDERED: LORazepam 0.5 MG TAB PO PRN (10:26)
--- NOTE | 2019-01-21 14:47 | P.DS ---
Providers Date of admission: 01/20/19 08:47 Attending physician: Patrice Benavides Consults: 01/18/19 09:16 Consult Physician Urgent Consulting Provider: Manuelito Gonzalez Reason/Comments: polysubstance abuse/intoxication Do you want consulting provider notified?: Yes Primary care physician: Stated None Hospital Course: 22-year-old male with a past medical history of polysubstance abuse brought in by police as he was wandering in the streets. Patient was noticed to have a erratic impulsive behavior.patient has a previous admission last week for the same complaint. At the time of admission patient was very agitated and was unable to answer any questions. His urine drug screen was positive for amphetamines, cocaine and marijuana. patient has been admitted to the general medical floors. Currently the patient is waking up and states that he is hungry and wants something to eat. Patient is still delusional and he is trying to wean his friends. Patient is still confused. He knows that he is in the hospital but could not specify which one. He admits to having history of drug abuse but he said he was clean for a few weeks but later on got back to them because he was having issues with his girlfriend. Patient denies having any suicidal or homicidal ideation. He mentions about doing drugs to get himself high but not to hurt himself. On 01/19/2019 - patient is comfortably lying in bed. He has a sitter at the bedside. Patient is much more alert and oriented than yesterday. He states that he took the drugs to get himself high. He mentions that he is homeless and that his mother does not care for him. He was sober for a few weeks but due to an argument with his girlfriend he went back to drugs. Patient's vitals have been stable this morning. His labs from this morning are within normal limits. He complains of having pain all over his body. Patient does not have the twitching movements any more. Patient denies having any chest pain or difficulty in breathing. No abdominal pain nausea vomiting or diarrhea. No dysuria or hematuria. 01/20/2019 Patient is awake enough, unsure whether patient will actually required consultation from a psychiatric as patient denied any sleep or lie ideation patient is an not significantly depressed, patient at this point of time is willing to quit any drugs:. Although it is not easy to assess him as patient is not truthful with a lot of things. Social work will talk to the mother and will assess for the appropriate disposition patient was given information regarding the shelters. Patient probably can be discharged from medical perspective. 01/21/2019 Patient is much more awake social science manager is able to find a place for him to go which opens at 4 PM patient will be discharged at that time. Patient was evalua jhony by psychiatry and they did not recommend any inpatient hospitalization. Patient does have hepatitis C we'll arrange follow-up with gastroneurology as an outpatient. Discussed with the patient regarding hepatitis C. PHYSICAL EXAMINATION: GENERAL: The patient is alert and oriented x3, not in any acute distress. Well developed, well nourished. HEENT: Pupils are round and equally reacting to light. EOMI. No scleral icterus. No conjunctival pallor. Normocephalic, atraumatic. No pharyngeal erythema. No thyromegaly. CARDIOVASCULAR: S1 and S2 present. No murmurs, rubs, or gallops. PULMONARY: Chest is clear to auscultation, no wheezing or crackles. ABDOMEN: Soft, nontender, nondistended, normoactive bowel sounds. No palpable organomegaly. MUSCULOSKELETAL: No joint swelling or deformity. EXTREMITIES: No cyanosis, clubbing, or pedal edema. NEUROLOGICAL: Gross neurological examination did not reveal any focal deficits. SKIN:non specific lesions on face. -Polysubstance abuse and encephalopathy toxic secondary to polysubstance abuse and hepatitis C chronic. Plan - Discharge Summary Discharge Rx Participant: Yes New Discharge Prescriptions: Continue Buprenorphine HCl/Naloxone HCl [Suboxone 8 mg-2 mg Sl Film] 1 film SL DAILY busPIRone HCl [Buspar] 10 mg PO TID #21 tab Citalopram Hydrobromide [CeleXA] 40 mg PO DAILY #7 tab QUEtiapine FUMARATE [SEROquel] 200 mg PO HS #7 tab buPROPion XL [Wellbutrin XL] 150 mg PO DAILY #7 tab Discharge Medication List Buprenorphine HCl/Naloxone HCl [Suboxone 8 mg-2 mg Sl Film] 1 film SL DAILY 01/12/19 [History] Citalopram Hydrobromide [CeleXA] 40 mg PO DAILY #7 tab 01/21/19 [Rx] QUEtiapine FUMARATE [SEROquel] 200 mg PO HS #7 tab 01/21/19 [Rx] buPROPion XL [Wellbutrin XL] 150 mg PO DAILY #7 tab 01/21/19 [Rx] busPIRone HCl [Buspar] 10 mg PO TID #21 tab 01/21/19 [Rx] Follow up Appointment(s)/Referral(s): Janet Mariano MD [STAFF PHYSICIAN] - 1 Week Rukhsana Godoy MD [STAFF PHYSICIAN] - 1 Week (unable to make appointment not a patient at office) Patient Instructions/Handouts: Polysubstance Abuse (ED) Discharge Disposition: HOME SELF-CARE
== END 2019-01-21 12:25 | disposition home or self-care (01) | DRG 917 ==
LOC: EC 03:30 → 4SSUR 09:14 → OBSVTOIN 01-20 08:47
PROVIDERS: ADMIT Internal Medicine; ATTEND Internal Medicine
DX: T50.901A Poisoning by unspecified drugs, medicaments and biological substances, accidental (unintentional), initial encounter (principal); G92 Toxic encephalopathy; F17.200 Nicotine dependence, unspecified, uncomplicated; F15.90 Other stimulant use, unspecified, uncomplicated; B18.2 Chronic viral hepatitis C; F41.9 Anxiety disorder, unspecified; Z59.0 Homelessness; Z79.899 Other long term (current) drug therapy
CPT/HCPCS: 36415; 80053; 80074; 80306; 80320; 80329; 83520; 85025; 96361; 96372; 96374; 99285

== ENCOUNTER 2019-02-01 22:02 | Inpatient (IN) | payer MEDICAID, OTHER ==
[2019-02-02] MEDS ORDERED: LORazepam 1 MG TAB PO STA (00:19)
--- NOTE | 2019-02-02 00:24 | ED ---
General Adult HPI - General Source: patient Mode of arrival: ambulatory <Joseph Saha - Last Filed: 02/02/19 01:50> <Kannan Meehan - Last Filed: 02/02/19 09:45> - General Chief complaint: Psychiatric Symptoms Stated complaint: Mental Health Time Seen by Provider: 02/01/19 22:26 - History of Present Illness Initial comments: Patient is a 23-year-old male with history of substance abuse presenting to emergency by with a chief complaint of not able to sleep because he is out of medication. Patient walked himself to the ED and in the triage valladares stated that he is out of medication which is causing not to sleep for 7 days. Patient does not give clear answers and appears to be confused. Patient is exhibiting erratic behavior. Patient admits to using marijuana and shooting meth "couple hours ago". He was admitted to the hospital for drug overdose last week. (Joseph Saha) - Related Data Previous Rx's Medication Instructions Recorded Citalopram Hydrobromide [CeleXA] 40 mg PO DAILY #7 tab 01/21/19 QUEtiapine FUMARATE [SEROquel] 200 mg PO HS #7 tab 01/21/19 buPROPion XL [Wellbutrin XL] 150 mg PO DAILY #7 tab 01/21/19 busPIRone HCl [Buspar] 10 mg PO TID #21 tab 01/21/19 Allergies Allergy/AdvReac Type Severity Reaction Status Date / Time cat dander Allergy Unknown Verified 02/02/19 09:31 Review of Systems ROS Other: All systems not noted in ROS Statement are negative. <Joseph Saha - Last Filed: 02/02/19 01:50> ROS Other: All systems not noted in ROS Statement are negative. <Kannan Meehan - Last Filed: 02/02/19 09:45> ROS Statement: Those systems with pertinent positive or pertinent negative responses have been documented in the HPI. Past Medical History Past Medical History: No Reported History, Unable to Obtain History of Any Multi-Drug Resistant Organisms: Unobtainable Past Surgical History: No Surgical Hx Reported Past Anesthesia/Blood Transfusion Reactions: Unable to Obtain Past Psychological History: Unable to Obtain Smoking Status: Current every day smoker Past Alcohol Use History: None Reported Past Drug Use History: Cocaine, Marijuana, Methamphetamine - Past Family History Family Family Medical History: Unable to Obtain <Joseph Saha - Last Filed: 02/02/19 01:50> General Exam Limitations: altered mental status General appearance: alert, in no apparent distress Head exam: Present: atraumatic, normocephalic, normal inspection Eye exam: Present: normal appearance ENT exam: Present: normal exam, mucous membranes moist Neck exam: Present: normal inspection, full ROM Respiratory exam: Present: normal lung sounds bilaterally Cardiovascular Exam: Present: regular rate, normal rhythm, normal heart sounds Extremities exam: Present: normal inspection Back exam: Present: normal inspection Neurological exam: Present: altered Psychiatric exam: Present: agitated, anxious Skin exam: Present: warm, dry, intact, normal color, rash (Rashes on the face and throughout body secondary to drug use. Injection sites on the posterior aspect of bilateral hands.) <Joseph Saha - Last Filed: 02/02/19 01:50> Course Vital Signs 02/01/19 02/02/19 02/02/19 22:20 00:58 08:03 Temperature 97.2 F L Pulse Rate 87 74 Respiratory 18 16 Rate Blood Pressure 102/65 109/70 O2 Sat by Pulse 97 99 Oximetry Medical Decision Making - Lab Data Result diagrams: 02/02/19 01:15 02/02/19 01:15 <Joseph Saha - Last Filed: 02/02/19 01:50> - Lab Data Result diagrams: 02/02/19 01:15 02/02/19 01:15 <Kannan Meehan - Last Filed: 02/02/19 09:45> - Medical Decision Making Patient is a 23-year-old male with history of substance abuse presenting to the emergency department with a chief complaint of not able to sleep because he is out of medication. Patient is not giving clear answers although he states that he has been using marijuana and meth a few hours ago. Patient appears agitated and shaking intermittently. Patient given 2 mg of Ativan. Patient appears to be calm afterwards and somnolent but arousable. CBC and CMP obtained. Urine drug screen pending. Patient will need EPS evaluation. At this time case will be signed off to Dr. Jerry (Joseph Saha) I filled out a clinical certification for the patient's admission after the psychiatric nurse felt that a petition. (Kannan Meehan) - Lab Data Lab Results 02/02/19 02/02/19 Range/Units 01:15 01:15 WBC 6.3 (3.8-10.6) k/uL RBC 5.20 (4.30-5.90) m/uL Hgb 13.9 (13.0-17.5) gm/dL Hct 43.0 (39.0-53.0) % MCV 82.8 (80.0-100.0) fL MCH 26.7 (25.0-35.0) pg MCHC 32.3 (31.0-37.0) g/dL RDW 16.1 H (11.5-15.5) % Plt Count 297 (150-450) k/uL Neutrophils % 44 % Lymphocytes % 41 % Monocytes % 10 % Eosinophils % 2 % Basophils % 0 % Neutrophils # 2.8 (1.3-7.7) k/uL Lymphocytes # 2.6 (1.0-4.8) k/uL Monocytes # 0.6 (0-1.0) k/uL Eosinophils # 0.1 (0-0.7) k/uL Basophils # 0.0 (0-0.2) k/uL Anisocytosis Slight Sodium 141 (137-145) mmol/L Potassium 3.9 (3.5-5.1) mmol/L Chloride 107 (98-107) mmol/L Carbon Dioxide 19 L (22-30) mmol/L Anion Gap 15 mmol/L BUN 25 H (9-20) mg/dL Creatinine 0.79 (0.66-1.25) mg/dL Est GFR (CKD-EPI)AfAm >90 (>60 ml/min/1.73 sqM) Est GFR (CKD-EPI)NonAf >90 (>60 ml/min/1.73 sqM) Glucose 77 (74-99) mg/dL Calcium 10.0 (8.4-10.2) mg/dL Total Bilirubin 0.8 (0.2-1.3) mg/dL AST 66 H (17-59) U/L ALT 195 H (21-72) U/L Alkaline Phosphatase 81 (38-126) U/L Total Protein 8.5 H (6.3-8.2) g/dL Albumin 4.9 (3.5-5.0) g/dL Disposition <Joseph Saha - Last Filed: 02/02/19 01:50> Time of Disposition: 09:23 <Kannan Meehan - Last Filed: 02/02/19 09:45> Clinical Impression: Acute psychosis, Polysubstance abuse Disposition: ADMITTED IP TO THIS HOSP Referrals: None,Stated [Primary Care Provider] - 1-2 days
[2019-02-02] MEDS ORDERED: LORazepam 2 MG/ML INJ IM STA ×2 (00:42→09:30)
[2019-02-02 01:29] LABS: Anisocytosis Slight; Basophils % (A) 0 %; Eosinophils # (A) 0.1 k/uL (0-0.7); Eosinophils % (A) 2 %; HGB 13.9 gm/dL (13.0-17.5); Lymphocytes # (A) 2.6 k/uL (1.0-4.8); Lymphocytes % (A) 41 %; MCH 26.7 pg (25.0-35.0); MCHC 32.3 g/dL (31.0-37.0); MCV 82.8 fL (80.0-100.0); Mean Platelet Volume 7.2; Monocytes # (A) 0.6 k/uL (0-1.0); Monocytes % (A) 10 %; Neutrophils # (A) 2.8 k/uL (1.3-7.7); Neutrophils % (A) 44 %; Platelet Count 297 k/uL (150-450); RDW 16.1 % (11.5-15.5); WBC 6.3 k/uL (3.8-10.6)
[2019-02-02 01:41] LABS: Potassium 3.9 mmol/L (3.5-5.1)
[2019-02-02 01:42] LABS: ALT 195 U/L (21-72); AST 66 U/L (17-59); African American GFR (CKD) >90 (>60 ml/min/1.73 sqM); Albumin 4.9 g/dL (3.5-5.0); Alkaline Phosphatase 81 U/L (38-126); Anion Gap 15 mmol/L; Blood Urea Nitrogen 25 mg/dL (9-20); Carbon Dioxide 19 mmol/L (22-30); Chloride 107 mmol/L (98-107); Glucose 77 mg/dL (74-99); Non-African American GFR(CKD) >90 (>60 ml/min/1.73 sqM); Sodium 141 mmol/L (137-145); Total Bilirubin 0.8 mg/dL (0.2-1.3); Total Protein 8.5 g/dL (6.3-8.2)
[2019-02-02] MEDS ORDERED: ZIPRASIDONE 20 MG VIAL IM STA (09:30)
[2019-02-02 10:05] LABS: Amphetamine Screen,Urine Detected (NotDetected); Benzodiazepines Screen,Urine Detected (NotDetected); Cocaine Screen,Urine Detected (NotDetected); Opiate Screen,Urine Detected (NotDetected); Phencyclidine Screen,Urine Not Detected (NotDetected); Urn Cannabinoid Scrn Detected (NotDetected)
[2019-02-02 10:06] LABS: Barbiturate Screen,Urine Not Detected (NotDetected); Methadone Screen, Urine Not Detected (NotDetected); Oxycodone Screen, Urine Not Detected (NotDetected); Tricyclic Antidepressant,Urine Not Detected (NotDetected)
[2019-02-02] MEDS ORDERED: MAG HYDROX/AL HYDROX/SIMETH 30 ML CUP PO PRN (10:57)
[2019-02-02] MEDS ORDERED: ACETAMINOPHEN TAB 325 MG TAB PO PRN (10:57)
[2019-02-02] MEDS ORDERED: MAGNESIUM HYDROXIDE 2,400 MG/10 ML CUP PO PRN (10:57)
[2019-02-02] MEDS ORDERED: LORazepam 2 MG/ML INJ IV PRN (11:01)
[2019-02-02] MEDS: NICOTINE 14MG/24HR PATCH TRANSDERM SCH (12:23)
--- NOTE | 2019-02-02 13:09 | P.HP ---
Psychiatric H&P - . H&P Date: 02/02/19 History & Physical: I reviewed the medical record and attempted to interview the patient. According to the ER physician's note he presented with chief complaint of not being able to sleep and "being on the medications." He admitted to using marijuana and injecting methamphetamine prior to his presentation. His UDS was positive for opiates, amphetamines, methamphetamines, benzodiazepines, cocaine and marijuana. In the ED was markedly agitated received 2 mg of Ativan IM. I approached him in his room for this interview. He was laying in bed. He would not get out of bed or answer questions. We'll attempt to interview him again. Allergies Allergy/AdvReac Type Severity Reaction Status Date / Time cat dander Allergy Unknown Verified 02/02/19 09:31 Vital Signs Temp 97.2 F L 02/02/19 11:59 Pulse 85 02/02/19 12:30 Resp 14 02/02/19 11:59 BP 100/62 02/02/19 12:30 Pulse Ox 98 02/02/19 11:59 Intake & Output 02/01/19 02/02/19 02/02/19 18:59 06:59 18:59 Weight 61.235 kg Laboratory Last Values WBC 6.3 k/uL (3.8-10.6) 02/02/19 01:15 RBC 5.20 m/uL (4.30-5.90) 02/02/19 01:15 Hgb 13.9 gm/dL (13.0-17.5) 02/02/19 01:15 Hct 43.0 % (39.0-53.0) 02/02/19 01:15 MCV 82.8 fL (80.0-100.0) 02/02/19 01:15 MCH 26.7 pg (25.0-35.0) 02/02/19 01:15 MCHC 32.3 g/dL (31.0-37.0) 02/02/19 01:15 RDW 16.1 % (11.5-15.5) H 02/02/19 01:15 Plt Count 297 k/uL (150-450) 02/02/19 01:15 Neutrophils % 44 % 02/02/19 01:15 Lymphocytes % 41 % 02/02/19 01:15 Monocytes % 10 % 02/02/19 01:15 Eosinophils % 2 % 02/02/19 01:15 Basophils % 0 % 02/02/19 01:15 Neutrophils # 2.8 k/uL (1.3-7.7) 02/02/19 01:15 Lymphocytes # 2.6 k/uL (1.0-4.8) 02/02/19 01:15 Monocytes # 0.6 k/uL (0-1.0) 02/02/19 01:15 Eosinophils # 0.1 k/uL (0-0.7) 02/02/19 01:15 Basophils # 0.0 k/uL (0-0.2) 02/02/19 01:15 Anisocytosis Slight 02/02/19 01:15 Sodium 141 mmol/L (137-145) 02/02/19 01:15 Potassium 3.9 mmol/L (3.5-5.1) 02/02/19 01:15 Chloride 107 mmol/L (98-107) 02/02/19 01:15 Carbon Dioxide 19 mmol/L (22-30) L 02/02/19 01:15 Anion Gap 15 mmol/L 02/02/19 01:15 BUN 25 mg/dL (9-20) H 02/02/19 01:15 Creatinine 0.79 mg/dL (0.66-1.25) 02/02/19 01:15 Est GFR (CKD-EPI)AfAm >90 (>60 ml/min/1.73 sqM) 02/02/19 01:15 Est GFR (CKD-EPI)NonAf >90 (>60 ml/min/1.73 sqM) 02/02/19 01:15 Glucose 77 mg/dL (74-99) 02/02/19 01:15 Calcium 10.0 mg/dL (8.4-10.2) 02/02/19 01:15 Total Bilirubin 0.8 mg/dL (0.2-1.3) 02/02/19 01:15 AST 66 U/L (17-59) H 02/02/19 01:15 ALT 195 U/L (21-72) H 02/02/19 01:15 Alkaline Phosphatase 81 U/L (38-126) 02/02/19 01:15 Total Protein 8.5 g/dL (6.3-8.2) H 02/02/19 01:15 Albumin 4.9 g/dL (3.5-5.0) 02/02/19 01:15 Urine Opiates Screen Detected (NotDetected) H 02/02/19 09:20 Ur Oxycodone Screen Not Detected (NotDetected) 02/02/19 09:20 Urine Methadone Screen Not Detected (NotDetected) 02/02/19 09:20 Ur Propoxyphene Screen Not Detected (NotDetected) 02/02/19 09:20 Ur Barbiturates Screen Not Detected (NotDetected) 02/02/19 09:20 U Tricyclic Antidepress Not Detected (NotDetected) 02/02/19 09:20 Ur Phencyclidine Scrn Not Detected (NotDetected) 02/02/19 09:20 Ur Amphetamines Screen Detected (NotDetected) H 02/02/19 09:20 U Methamphetamines Scrn Detected (NotDetected) H 02/02/19 09:20 U Benzodiazepines Scrn Detected (NotDetected) H 02/02/19 09:20 Urine Cocaine Screen Detected (NotDetected) H 02/02/19 09:20 U Marijuana (THC) Screen Detected (NotDetected) H 02/02/19 09:20 02/02/19 13:07
[2019-02-02] MEDS: BACITRACIN 500 UNIT/GM OINT 28.4 GM TUBE TOPICAL SCH ×3 (13:41→21:21)
[2019-02-02] MEDS: LORazepam 1 MG TAB PO PRN (18:53)
[2019-02-02] MEDS: ZIPRASIDONE 20 MG VIAL IM PRN (18:53)
[2019-02-02] MEDS: QUEtiapine 200 MG TAB PO SCH (21:22)
[2019-02-03] MEDS: NICOTINE 14MG/24HR PATCH TRANSDERM SCH (08:27)
[2019-02-03] MEDS: ZIPRASIDONE 20 MG VIAL IM PRN ×2 (08:55→17:44)
[2019-02-03] MEDS: BACITRACIN 500 UNIT/GM OINT 28.4 GM TUBE TOPICAL SCH ×2 (08:58→21:14)
[2019-02-03] MEDS: ARIPiprazole 10 MG TAB PO SCH (08:58)
[2019-02-03] MEDS: LORazepam 2 MG/ML INJ IM PRN (09:02)
[2019-02-03 12:20] LABS: Hemoglobin A1C 5.1 % (4.0-6.0)
[2019-02-03] MEDS: LORazepam 1 MG TAB PO PRN (13:31)
[2019-02-03] MEDS: NICOTINE POLACRILEX 2 MG GUM BUCCAL PRN ×2 (13:32→22:12)
[2019-02-03] MEDS: QUEtiapine 200 MG TAB PO SCH (21:11)
[2019-02-04] MEDS: ARIPiprazole 10 MG TAB PO SCH (08:19)
[2019-02-04] MEDS: BACITRACIN 500 UNIT/GM OINT 28.4 GM TUBE TOPICAL SCH ×2 (08:19→20:50)
[2019-02-04] MEDS: LORazepam 2 MG/ML INJ IM PRN (08:25)
[2019-02-04] MEDS: ZIPRASIDONE 20 MG VIAL IM PRN ×2 (08:25→16:30)
[2019-02-04] MEDS: NICOTINE POLACRILEX 2 MG GUM BUCCAL PRN ×3 (08:51→18:12)
[2019-02-04] MEDS: LORazepam 1 MG TAB PO PRN ×2 (11:27→20:52)
[2019-02-04] MEDS: hydrOXYzine PAMOATE 25 MG CAP PO PRN (12:51)
[2019-02-04] MEDS: buPROPion XL 300 MG TAB.ER.24H PO SCH (12:51)
--- NOTE | 2019-02-04 16:28 | P.PN ---
Progress Note - Text Progress Note Date: 02/04/19 Clinical Problems: Unspecified mood disorder, opiate use disorder severe, amphetamines disorder severe, cocaine use disorder moderate, cannabis use disorder moderate, rule out bipolar disorder, rule out schizoaffective disorder, rule out schizophrenia Interim history: I reviewed the medical record, interviewed the patient and discuss his treatment and treatment plan during team meeting. He complains of anxiety and requested a prescription for Xanax. He became distressed when I denied this request. He perseverated on needing something for "anxiety". We reviewed his past medication regimen and agreed to continue Wellbutrin 300 mg daily, Vistaril 25 mg every 6 when necessary as well as Seroquel 200 mg at bedtime and Abilify 10 mg daily. I attempted to engage in discussion of his substance use problems. He denied that he has problems with drugs (even though he admitted substance use problems during our initial assessment). I explained that his UDS was positive for opiates, amphetamines, methamphetamine, benzodiazepines, cocaine and marijuana. He has been admitted several times a substance abuse treatment programs most recently to [facility] and placed at a residential substance abuse program in [place]. He appeared frustrated over her discussion of substance abuse and my refusal to prescribed benzodiazepines. He requested to be discharged. Mental status exam: He presented as a thin male who was guarded and manipulative. He made eye contact and appeared to attend to interview. He had multiple healing excoriations on his face and a bandage over his right cheek. He had a bright facial expression. He showed no abnormality of p sychomotor activity. His speech was spontaneous with normal rate, rhythm and volume. His affect was consistent with his mood. He was not overtly irritable, anxious or depressed. He denied suicidal ideation or wishes. He denied homicidal ideation. He denied such depressive cognitions as hopelessness, helplessness and worthlessness. He did not express ideas reference, paranoid ideation or delusional thoughts. His thinking was abstract and associations were coherent. He denied hallucinations and didn't appear to be responding to internal stimuli. Assessment: His mood, anxiety and psychotic symptoms have remitted. He remains focused on anxiety and obtaining prescriptions for narcotic medications. His primary problem is related to his chronic substance abuse and he would benefit from continued substance abuse treatment. Plan: Plan for discharge on 02/05/2019. He stated that his mother will pick him up in hospital and arrange for him to be readmitted to [facility] for continued substance abuse treatment. Restart Wellbutrin XL 300 mg daily and prescribed Vistaril 25 mg every 6 hours when necessary for anxiety. Continue Abilify 10 mg daily and Seroquel 200 mg at bedtime. Continue Geodon 20 mg IM twice a day when necessary for agitation or aggression and lorazepam 1 mg 3 times a day when necessary for anxiety or agitation. Encourage participation in therapeutic groups and activities.
[2019-02-04] MEDS: QUEtiapine 200 MG TAB PO SCH (20:50)
[2019-02-05] MEDS: LORazepam 1 MG TAB PO PRN (06:45)
[2019-02-05 07:05] VITALS: BP 135/87; PULSE 106; RESP 16; TEMP 97.9
[2019-02-05] MEDS: buPROPion XL 300 MG TAB.ER.24H PO SCH (08:12)
[2019-02-05] MEDS: ARIPiprazole 10 MG TAB PO SCH (08:12)
[2019-02-05] MEDS: BACITRACIN 500 UNIT/GM OINT 28.4 GM TUBE TOPICAL SCH (08:12)
[2019-02-05] MEDS: NICOTINE POLACRILEX 2 MG GUM BUCCAL PRN ×2 (08:46→13:29)
[2019-02-05] MEDS: hydrOXYzine PAMOATE 25 MG CAP PO PRN (10:07)
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
== END 2019-02-05 13:46 | disposition home or self-care (01) | DRG 885 ==
LOC: EC 22:02 → 3MHU 02-02 10:24
PROVIDERS: ADMIT Psychiatry & Neurology Psychiatry; ATTEND Psychiatry & Neurology Psychiatry
DX: F23 Brief psychotic disorder (principal); G93.40 Encephalopathy, unspecified; F15.20 Other stimulant dependence, uncomplicated; F14.20 Cocaine dependence, uncomplicated; F11.20 Opioid dependence, uncomplicated; F31.9 Bipolar disorder, unspecified; F41.9 Anxiety disorder, unspecified; F17.200 Nicotine dependence, unspecified, uncomplicated; F12.20 Cannabis dependence, uncomplicated; Z79.899 Other long term (current) drug therapy; Z56.0 Unemployment, unspecified
CPT/HCPCS: 36415; 80053; 80061; 80306; 82075; 83036; 84443; 85025; 96372; 99284